=== PATIENT | male | born 1955 | race Caucasian/White ===

== ENCOUNTER 2025-04-28 06:12 | Day surgery (SDC) | payer MEDICARE, OTHER ==
[~2025-04-28 06:12] MED LIST: CEFAZOLIN 2 G in IV DEXTROSE 5% 100 ML IV ONE; IV LACTATED RINGERS SOLUTION 1,000 ML IV PRN
[2025-04-28] MEDS ORDERED: FENTANYL CITRATE 100 MCG/2 ML AMPUL ONE (06:50)
[2025-04-28] MEDS ORDERED: MIDAZOLAM HCL 2 MG/2 ML VIAL ONE (06:50)
[2025-04-28] MEDS ORDERED: ESMOLOL HCL 100 MG/10 ML VIAL IV ONE (08:00)
[2025-04-28] MEDS ORDERED: ONDANSETRON 4 MG/2 ML VIAL ONE (08:00)
[2025-04-28] MEDS ORDERED: SUCCINYLCHOLINE CHLORIDE 200 MG/10 ML VIAL ONE (08:00)
[2025-04-28] MEDS ORDERED: KETOROLAC TROMETHAMINE 30 MG INJ ONE (08:00)
[2025-04-28] MEDS ORDERED: NEOSTIGMINE METHYLSULFATE 10 MG/10 ML VIAL ONE (08:00)
[2025-04-28] MEDS ORDERED: PROPOFOL 200 MG/20 ML BOTTLE ONE ×2 (08:00)
[2025-04-28] MEDS ORDERED: EPHEDRINE SULFATE 50 MG/ML AMPUL ONE (08:00)
[2025-04-28] MEDS ORDERED: LIDOCAINE-MPF 2% 5 ML VIAL ONE (08:00)
[2025-04-28] MEDS ORDERED: CEFAZOLIN 1 G VIAL ONE ×2 (08:00)
[2025-04-28] MEDS ORDERED: GLYCOPYRROLATE 0.2 MG/ML VIAL ONE ×2 (08:00)
[2025-04-28] MEDS ORDERED: VECURONIUM BROMIDE 10 MG VIAL ONE (08:00)
[2025-04-28] MEDS ORDERED: PHENYLEPHRINE 10 MG/1 ML VIAL ONE (08:00)
[2025-04-28] MEDS ORDERED: BUPIVACAINE/EPI PF 0.5% 10 ML VIAL ONE (08:04)
[2025-04-28] MEDS ORDERED: LIDOCAINE HCL 1% 20 ML VIAL ONE (08:04)
[2025-04-28] MEDS ORDERED: BACITRACIN/POLYMYXIN B OINT 15 GM TUBE ONE (08:18)
[2025-04-28] MEDS ORDERED: GABAPENTIN 300 MG CAPSULE ONE (09:33)
[2025-04-28] MEDS ORDERED: ACETAMINOPHEN 500 MG TABLET ONE (09:33)
[2025-04-28 09:55] VITALS: BP 121/89; TEMP 97
[2025-04-28] MEDS ORDERED: CELECOXIB 200 MG CAPSULE PO ONE (11:00)
[2025-04-28] MEDS ORDERED: GABAPENTIN 300 MG CAPSULE PO ONE (11:00)
[2025-04-28] MEDS ORDERED: ACETAMINOPHEN 500 MG TABLET PO ONE (11:00)
== END 2025-04-28 11:04 | disposition home or self-care (01) ==
LOC: DS 06:12
PROVIDERS: ATTEND Surgery
DX: K64.3 Fourth degree hemorrhoids (principal); I11.0 Hypertensive heart disease with heart failure; I50.9 Heart failure, unspecified; I25.10 Atherosclerotic heart disease of native coronary artery without angina pectoris; E11.9 Type 2 diabetes mellitus without complications; F41.9 Anxiety disorder, unspecified; Z79.899 Other long term (current) drug therapy; Z98.890 Other specified postprocedural states; Z88.8 Allergy status to other drugs, medicaments and biological substances
CPT/HCPCS: 46260; 88304; 82962; J1885; J0690 ×3; J3490 ×6; J2405; J0330; J7040; A4649; A4663; A9150; J2250; J3010